=== PATIENT | female | born 1940 | race Hispanic/Latino ===

== ENCOUNTER 2020-02-15 11:00 | Inpatient (IN) | payer OTHER ==
[~2020-02-15] VITALS: Ht 152.4 cm; Wt 70.1 kg
[2020-02-15 11:22] LABS: BASOPHILS % (AUTO) 0.9 % (0.0-5.0); EOSINOPHILS % (AUTO) 5.5 % (0.0-8.0); HEMATOCRIT 37.6 % (36-48); LYMPHOCYTES % (AUTO) 32.1 % (21.0-51.0); MEAN CORPUSCULAR HEMOGLOBIN 29.9 pg (27.0-33.0); MEAN CORPUSCULAR HGB CONC 32.4 g/dL (32.0-36.0); MEAN CORPUSCULAR VOLUME 92.2 fL (79-99); MONOCYTES % (AUTO) 8.8 % (3.0-13.0); NEUTROPHILS % (AUTO) 52.5 % (40.0-77.0); PLATELET COUNT (AUTO) 181 K/uL (130-400); RED BLOOD CELL COUNT(AUTO) 4.08 MIL/uL (4.00-5.50); RED CELL DISTRIBUTION WIDTH 13.8 % (11.0-15.5); WHITE BLOOD COUNT (AUTO) 6.3 K/uL (4.8-10.8)
[2020-02-15 11:31] LABS: APPEARANCE,URINE CLOUDY (CLEAR); BILIRUBIN,URINE NEGATIVE (NEGATIVE); COLOR,URINE YELLOW (YELLOW); GLUCOSE, URINE (UA) NEGATIVE (NEGATIVE); KETONES,URINE NEGATIVE (NEGATIVE); LEUKOCYTE ESTERASE ,URINE LARGE (NEGATIVE); NITRATE,URINE NEGATIVE (NEGATIVE); OCCULT BLOOD,URINE TRACE-INTACT (NEGATIVE); PROTEIN,URINE NEGATIVE (NEGATIVE); UROBILINOGEN,URINE 0.2 mg/dL (0.2-1.0)
[2020-02-15 11:32] LABS: CREATININE 0.9 mg/dL (0.5-1.5); POTASSIUM 3.7 mmol/L (3.5-5.1)
[2020-02-15 11:41] LABS: BACTERIA,URINE Few /HPF (None Seen); MUCUS,URINE Few LPF (None Seen); RBC,URINE 0-1 /HPF (0-1); SQUAMOUS EPITHELIAL CELL,UR Many /HPF (0-2)
[2020-02-15 11:51] LABS: INR 0.97 (0.85-1.15); PROTHROMBIN TIME 10.5 SEC (9.6-11.6)
[2020-02-19 14:00] VITALS: BP 160/60
[2020-02-19] MEDS ORDERED: ATEN50TA PO (14:37)
[2020-02-19] MEDS ORDERED: OMEG100014 PO (14:37)
[2020-02-19] MEDS ORDERED: VITA600C3 PO (14:37)
[2020-02-19] MEDS ORDERED: AEC81 PO (14:37)
[2020-02-19] MEDS ORDERED: AMLO-257 PO (14:37)
[2020-02-19] MEDS ORDERED: SIMV-46 PO (14:37)
[2020-02-19] MEDS ORDERED: HYDR25TA PO (14:37)
[2020-02-19] MEDS ORDERED: LOSA100T58 PO (14:37)
--- NOTE | 2020-02-19 15:52 | NUR ---
Abnormal UA Called Dr. Torrez to make aware of UA. Orders received to give Levofloxacin 500mg IV in holding area in AM of surgery.
[2020-02-22] VITALS (25 sets, daily range): BP systolic 99–131; BP diastolic 55–66
[2020-02-22] MEDS: CEFAZOLIN SODIUM 1 GM VIAL IVP SCH ×3 (06:00→23:50)
[2020-02-22] MEDS ORDERED: LEVOFLOXACIN 500 MG/D5W 100 ML 100 ML ONE (10:15)
[2020-02-22] MEDS ORDERED: LACTATED RINGERS 1000ML 1,000 ML IV ONE (11:19)
[2020-02-22] MEDS ORDERED: ACETAMINOPHEN EXTRA STRENGTH 500 MG TABLET ONE (14:00)
[2020-02-22] MEDS ORDERED: KETOROLAC TROMETHAMINE 15MG/ML ONE (14:00)
[2020-02-22] MEDS ORDERED: CELECOXIB 200 MG CAP ONE (14:01)
[2020-02-22] MEDS ORDERED: TRANEXAMIC ACID 1000MG/10ML ONE ×3 (14:01→17:48)
[2020-02-22] MEDS ORDERED: LIDOCAINE PF 2% 5ML ABBOJECT ONE (14:13)
[2020-02-22] MEDS ORDERED: SUCCINYLCHOLINE CHLORIDE 20 MG/ML 10 ML VIAL ONE (14:14)
[2020-02-22] MEDS ORDERED: ROPIVACAINE 0.5% 5MG/ML 30ML IJ ONE (14:14)
[2020-02-22] MEDS ORDERED: PROPOFOL 10 MG/ML 20ML VIAL IV ONE (14:14)
[2020-02-22] MEDS ORDERED: ROCURONIUM 10MG/1ML SYR 10 MG/ML ML ONE (14:16)
[2020-02-22] MEDS ORDERED: GLYCOPYRROLATE 1 MG/5 ML SYRINGE ONE ×2 (14:38→17:24)
[2020-02-22] MEDS ORDERED: NEOSTIGMINE 5MG/5ML SYR IV ONE (14:38)
[2020-02-22] MEDS ORDERED: PHENYLEPHRINE HCL 10 MG/ML 1ML VIAL IV ONE ×2 (14:39→16:21)
[2020-02-22] MEDS ORDERED: CEFAZOLIN SODIUM 1 GM VIAL ONE (14:51)
[2020-02-22] MEDS ORDERED: ONDANSETRON HCL 4 MG/2 ML VIAL ONE (16:20)
[2020-02-22] MEDS ORDERED: DEXAMETHASONE SOD PHOSPHATE 10MG/ML 1ML VIAL ONE (16:20)
[2020-02-22] MEDS ORDERED: EPHEDRINE SULFATE 50 MG/ML AMPULE ONE (17:16)
[2020-02-22] MEDS ORDERED: DiphenhydrAMINE HCL 50 MG/ML VIAL IVP PRN (17:30)
[2020-02-22] MEDS ORDERED: POTASSIUM CHLORIDE 20 MEQ ERTAB PO PRN (17:30)
[2020-02-22] MEDS ORDERED: CALCIUM CARBONATE 500 MG TABLET PO PRN (17:30)
[2020-02-22] MEDS ORDERED: OXYCODONE HCL 5 MG TAB PO PRN (17:30)
[2020-02-22] MEDS ORDERED: TRAMADOL HCL 50 MG TABLET PO PRN (17:30)
[2020-02-22] MEDS ORDERED: TEMAZEPAM 15 MG CAPSULE PO PRN (17:30)
[2020-02-22] MEDS ORDERED: POTASSIUM CHLORIDE 20MEQ/100ML 100 ML IV PRN (17:30)
[2020-02-22] MEDS ORDERED: POTASSIUM CHLORIDE 10% ELIXIR 20 MEQ/15 ML UDCUP PO PRN (17:30)
[2020-02-22] MEDS ORDERED: ONDANSETRON HCL 4 MG/2 ML VIAL IVP PRN (17:30)
[2020-02-22] MEDS ORDERED: KETOROLAC TROMETHAMINE 15MG/ML IV PRN (17:30)
[2020-02-22] MEDS: ACETAMINOPHEN EXTRA STRENGTH 500 MG TABLET PO SCH (17:30)
[2020-02-22] MEDS ORDERED: LIDOCAINE HCL-MPF 1% 2ML VIAL IV PRN (17:30)
[2020-02-22] MEDS ORDERED: FE FUMARATE/FA/MV, MIN COMB#15 1 TAB PO PRN (17:30)
[2020-02-22] MEDS: SODIUM CHLORIDE 0.9% 1000ML 1,000 ML IV SCH (17:30)
--- NOTE | 2020-02-22 18:15 | NUR ---
REPORT RECEIVED FROM BELKYS WU FOR PT. GOING TO ROOM POST 305
--- NOTE | 2020-02-22 18:45 | NUR ---
PT. ARRIVED TO ROOM, DROWSY BUT EASY TO AWAKEN, DRESSING LT. SHOULDER IN PLACE AND WELL SECURED. HEMO-VAC IN PLACE TO MEÑO SUCTION. NO C/O OF PAIN AT THIS TIME. PER REPORT PT. 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 AC. ON 02 AT 2 LITERS VIA NC WITH SATS HIGH 90S. REPORT PASSED ON TO PM NURSE
[2020-02-22] MEDS: PREGABALIN 25 MG CAP PO SCH (22:05)
[2020-02-22] MEDS: SIMVASTATIN 20 MG TABLET PO SCH (22:05)
[2020-02-22] MEDS: ASPIRIN 81MG TAB.CHEW PO SCH (22:05)
[2020-02-22] MEDS: CELECOXIB 200 MG CAP PO SCH (22:05)
[2020-02-22] MEDS: ATENOLOL 50 MG TABLET PO SCH (22:07)
[2020-02-23] MEDS: ACETAMINOPHEN EXTRA STRENGTH 500 MG TABLET PO SCH ×3 (01:21→15:59)
[2020-02-23 03:00] VITALS: BP 104/47
[2020-02-23] MEDS: SODIUM CHLORIDE 0.9% 1000ML 1,000 ML IV SCH ×2 (05:04→15:20)
[2020-02-23 05:36] LABS: HEMATOCRIT 30.3 % (36-48); MEAN CORPUSCULAR HEMOGLOBIN 30.1 pg (27.0-33.0); MEAN CORPUSCULAR HGB CONC 32.7 g/dL (32.0-36.0); MEAN CORPUSCULAR VOLUME 92.1 fL (79-99); RED BLOOD CELL COUNT(AUTO) 3.29 MIL/uL (4.00-5.50); RED CELL DISTRIBUTION WIDTH 13.4 % (11.0-15.5); WHITE BLOOD COUNT (AUTO) 7.2 K/uL (4.8-10.8)
[2020-02-23 05:46] LABS: CREATININE 1.4 mg/dL (0.5-1.5); POTASSIUM 3.9 mmol/L (3.5-5.1)
[2020-02-23] MEDS: CEFAZOLIN SODIUM 1 GM VIAL IVP SCH (05:47)
[2020-02-23 08:00] VITALS: BP 101/49
[2020-02-23] MEDS: ASPIRIN 81MG TAB.CHEW PO SCH ×3 (08:17→20:30)
[2020-02-23] MEDS: ASPIRIN 81 MG EC TAB PO SCH (08:18)
[2020-02-23] MEDS: LOSARTAN 100 MG TABLET PO SCH ×2 (08:24→09:00)
[2020-02-23] MEDS: TAMSULOSIN HCL 0.4 MG CAP.ER.24H PO SCH (08:24)
[2020-02-23] MEDS: HYDROCHLOROTHIAZIDE 25 MG TABLET PO SCH ×2 (08:24→09:00)
[2020-02-23] MEDS: FAMOTIDINE 20MG TAB 20 MG TAB PO SCH (08:24)
[2020-02-23] MEDS: POLYETHYLENE GLYCOL 3350 17 GM POWD.PACK PO SCH (08:24)
[2020-02-23] MEDS: PREGABALIN 25 MG CAP PO SCH ×2 (08:24→20:30)
[2020-02-23] MEDS: CELECOXIB 200 MG CAP PO SCH ×2 (08:25→20:31)
[2020-02-23] MEDS: LEVOFLOXACIN 500 MG TABLET PO SCH (08:25)
[2020-02-23] MEDS: FISH OIL 1000 MG/CAP PO SCH (08:25)
[2020-02-23] MEDS: VITAMIN E ACETATE PO SCH (08:26)
[2020-02-23] MEDS: OXYCODONE HCL 5 MG TAB PO PRN (08:27)
[2020-02-23] MEDS: ATENOLOL 50 MG TABLET PO SCH ×2 (09:00→20:31)
[2020-02-23] MEDS: AMLODIPINE BESYLATE 5 MG TAB PO SCH (09:00)
--- NOTE | 2020-02-23 09:23 | NUR ---
DCP CM met with pt discussed dc plans. Pt is independent prior to surgery, lives at home with spouse. Denies any equipments/services. Feels safe to go back home, spouse and daughter able to assist with transportation and needs as necessary. Agreeable for home w/HH post surgery, BESSIE signed for [facility]. DC plan to home w/HH. CM to continue to follow up. Addendum: 02/23/20 at 0925 by TONIA ÁLVAREZ LVN Amended: Links added.
--- NOTE | 2020-02-23 09:26 | NUR ---
CM Note: [facility] pending approval DC data processing systems project planner Felicitas faxed order, clinicals to [facility], confirmation received. DC data processing systems project planner spoke to Maritza, pending clinicals to be received at this time. Pt pending approval. Dr Torrez updated. Primary nurse Kina RN made aware. CM to continue to follow up.
--- NOTE | 2020-02-23 11:07 | NUR ---
[id number] patient signed IM Letter, I faxed IM Letter to [phone] and placed in chart under consent tab.
[2020-02-23 12:00] VITALS: BP 102/48
--- NOTE | 2020-02-23 13:36 | NUR ---
[id number] spoke to Ijeoma with [facility], stated patient is Accepted, call report to [phone] once patient is ready to be discharged. Notified RAMIRO Castanon of [facility] approval, left Report Phone# listed in front of chart on orange sheet.
[2020-02-23 16:00] VITALS: BP 120/44
[2020-02-23 19:00] VITALS: BP 103/55
[2020-02-23] MEDS: SIMVASTATIN 20 MG TABLET PO SCH (20:31)
[2020-02-23 23:47] VITALS: BP 100/48
[2020-02-24] MEDS: ACETAMINOPHEN EXTRA STRENGTH 500 MG TABLET PO SCH ×3 (03:08→16:20)
[2020-02-24 03:40] VITALS: BP 96/52
[2020-02-24] MEDS: ASPIRIN 81 MG EC TAB PO SCH (07:09)
[2020-02-24] MEDS: LEVOFLOXACIN 500 MG TABLET PO SCH (08:36)
[2020-02-24] MEDS: CELECOXIB 200 MG CAP PO SCH (08:36)
[2020-02-24] MEDS: FISH OIL 1000 MG/CAP PO SCH (08:36)
[2020-02-24] MEDS: POLYETHYLENE GLYCOL 3350 17 GM POWD.PACK PO SCH (08:36)
[2020-02-24] MEDS: PREGABALIN 25 MG CAP PO SCH (08:36)
[2020-02-24] MEDS: FAMOTIDINE 20MG TAB 20 MG TAB PO SCH (08:37)
[2020-02-24] MEDS: TAMSULOSIN HCL 0.4 MG CAP.ER.24H PO SCH (08:37)
[2020-02-24] MEDS: ASPIRIN 81MG TAB.CHEW PO SCH (08:37)
[2020-02-24] MEDS: OXYCODONE HCL 5 MG TAB PO PRN (08:39)
[2020-02-24] MEDS: ATENOLOL 50 MG TABLET PO SCH (08:39)
[2020-02-24] MEDS: VITAMIN E ACETATE PO SCH (08:40)
[2020-02-24] MEDS: AMLODIPINE BESYLATE 5 MG TAB PO SCH (08:40)
[2020-02-24] MEDS: LOSARTAN 100 MG TABLET PO SCH (08:40)
[2020-02-24] MEDS: HYDROCHLOROTHIAZIDE 25 MG TABLET PO SCH (08:40)
[2020-02-24 09:12] VITALS: BP 93/46
[2020-02-24 11:50] VITALS: BP 108/50
[2020-02-24] MEDS ORDERED: HYDR-4060 PO (15:54)
[2020-02-24 16:28] VITALS: BP 109/50
--- NOTE | 2020-02-24 18:00 | NUR ---
DISCHARGED INSTRUCTIONS GIVEN AND EXPLAINED TO PATIENT AND CALLED DAUGHTERMITCHELL UTILIZING TEACH BACK METHOD, VERBALIZED UNDERSTANDING. REPORT CALLED TO SAILAJA WILLINGHAM LVN [facility] PRIOR TO DISCHARGE, VERBALIZED UNDERSTANDING. DISCHARGE TO [facility] [phone] AGUSTIN ON 03/16/20 @ 10:00 A.M. CALL OFFICE FOR ANY CONCERNS 12/11. [phone] RESUME YOUR PREVIOUS HOME DIET. RESUME YOUR PREVIOUS HOME MEDICATIONS IF ANY INSTRUCTED BY STAFF. PLEASE TAKE PRESCRIPTION MEDICATIONS INSTRUCTED. IF YOU NEED A PRESCRIPTION REFILL ON ON YOUR PAIN MEDICATIONS, PLEASE CALL OFFICE A FEW DAYS BEFORE YOU TAKE YOUR LAST PAIN PILL. NURSE TO REMOVE DRESSING ON: 02/27/20 CONTINUE DAILY DRESSING CHANGES IF NEEDED AFTER 1ST REMOVAL. MAY SHOWER AND GET DRESSING WET BUT DO NOT PULL/RUB IT. FOLLOW THERAPIST RECOMMENDATIONS/INSTRUCTIONS. DO ACTIVE/PASSIVE ASSISTED SHOULDER ROM EXERCISES. DO SUPINE AND SEATED PENDULUM EXERCISES. DO WALL WALKING EXERCISES. LIMIT EXTERNAL ROTATION TO 30 DEGREES. DO ELBOW/WRIST/HAND ACTIVE ROM AND STRENGTHENING EXERCISES. CALL 911 OR GO TO EMERGENCY ROOM IF YOU HAVE ANY CHEST PAIN/DISCOMFORT, SHORTNESS OF BREATH/DIFFICULTY BREATHING OR NEEDED. EXPLAINED PROCEDURE OF CHANGING DRESSING AND D/C HEMOVAC. PT VERBALIZED UNDERSTANDING. 20CC HEMOVAC SANGUINEOUS DRAINAGE WITH TIP INTACT. NO ACTIVE DRAINAGE TO HEMOVAC SITE. INCISION WITH DERMABOND GLUE INTACT. CLEANSED WITH BETADINE AND APPLIED GAUZE SECURED WITH OPSITE. LABELED DRESSING TO REMOVE ON 02/27/20. PT TOLERATED PROCEDURE WELL. Addendum: 02/24/20 at 1927 by AUDREY CAMPO RN PT WAITING FOR DAUGHTER TO PICK HER UP.
[2020-02-25] MEDS ORDERED: BISACODYL 10 MG SUPP.RECT RC PRN (17:30)
== END 2020-02-24 18:55 | disposition home health service (06) | DRG 483 ==
LOC: EDSTATUS 11:00 → DAHIP 02-22 08:25 → 3BH 02-22 18:16
PROVIDERS: ADMIT Orthopaedic Surgery; ATTEND Orthopaedic Surgery
PROC: 0RRK0JZ Replacement of Left Shoulder Joint with Synthetic Substitute, Open Approach (ICD-10-PCS; principal; 2020-02-22 13:40)
PROC: 3E0T3BZ Introduction of Anesthetic Agent into Peripheral Nerves and Plexi, Percutaneous Approach (ICD-10-PCS; 2020-02-22 13:40)
DX: M19.012 Primary osteoarthritis, left shoulder (principal); N39.0 Urinary tract infection, site not specified; E78.00 Pure hypercholesterolemia, unspecified; D64.9 Anemia, unspecified; I10 Essential (primary) hypertension; B96.1 Klebsiella pneumoniae [K. pneumoniae] as the cause of diseases classified elsewhere; Z20.828 Contact with and (suspected) exposure to other viral communicable diseases; Z82.49 Family history of ischemic heart disease and other diseases of the circulatory system; Z83.3 Family history of diabetes mellitus; Z87.81 Personal history of (healed) traumatic fracture
CPT/HCPCS: 36415; 73030; 80048; 81001; 85025; 85027; 85610; 87077; 87088; 87186; 87641; 97039; A4565; A4606; C1776; G0378; J0330; J0690; J1100; J1885; J1956; J2001; J2370; J2405; J2704; J2710; J2795; J3490; J7030; J7120; U0003